=== PATIENT | female | born 1990 | race Caucasian/White ===

== ENCOUNTER 2017-03-16 03:11 | Emergency (ER) | payer OTHER ==
[2017-03-16 03:11] VITALS: BMI 34.3
[2017-03-16 03:23] VITALS: BP 146/81; PULSE 74; RESP 16; TEMP 98.5; O2SAT 96
[2017-03-16] MEDS ORDERED: Alum-Mag Hydrox-Simethicone Susp (30 mL) PO STA (03:27)
--- NOTE | 2017-03-16 03:39 | ED PDOC ---
HPI: Abdomen Time Seen by Provider: 03/16/17 03:22 Chief Complaint (Nursing): Abdominal Pain History Per: Patient History/Exam Limitations: no limitations Onset/Duration Of Symptoms: Days Outside of [place] travel?: No Current Symptoms Are (Timing): Still Present Location Of Pain/Discomfort: Epigastric Associated Symptoms: Nausea. denies: Vomiting Additional History Per: Patient Additional Complaint(s): no pmhx p/w 3 days of epigastric pain with nausea, no vomiting. normal BM's, no urinary symptoms, no vb/vd. states pain is pressure like, not associated with food consumption. no fevers/chills. Past Medical History Reviewed: Historical Data, Nursing Documentation, Vital Signs Vital Signs: Last Vital Signs Temp 98.5 F 03/16/17 03:18 Pulse 74 03/16/17 03:18 Resp 16 03/16/17 03:18 BP 146/81 03/16/17 03:18 Pulse Ox 96 03/16/17 03:39 - Medical History PMH: Asthma Denies: HIV, Chronic Kidney Disease - Family History Family History: States: Unknown Family Hx - Immunization History Hx Tetanus Toxoid Vaccination: No Hx Influenza Vaccination: No Hx Pneumococcal Vaccination: No - Home Medications Home Medications: Ambulatory Orders Medication Instructions Recorded Cyclobenzaprine [Cyclobenzaprine 10 mg PO TID #30 tab 01/22/16 HCl] Naproxen [Naprosyn] 500 mg PO BID PRN #20 tablet 01/22/16 Cyclobenzaprine [Cyclobenzaprine 10 mg PO BID PRN #10 tab 05/09/16 HCl] Naproxen 500 mg PO BID PRN #20 tab 05/09/16 traMADol [Ultram] 50 mg PO TID PRN #10 tab 05/09/16 Famotidine [Pepcid] 20 mg PO BID #30 tab 03/16/17 Omeprazole 20 mg PO DAILY #30 capsule. 03/16/17 - Allergies Allergies/Adverse Reactions: Allergies Allergy/AdvReac Type Severity Reaction Status Date / Time No Known Allergies Allergy Verified 01/22/16 11:53 Review of Systems ROS Statement: Except As Marked, All Systems Reviewed And Found Negative Gastrointestinal: Positive for: Nausea, Abdominal Pain. Negative for: Vomiting , Diarrhea Physical Exam - Reviewed Nursing Documentation Reviewed: Yes - Physical Exam Appears: Positive for: Well, Non-toxic, No Acute Distress Head Exam: Positive for: ATRAUMATIC, NORMAL INSPECTION, NORMOCEPHALIC Skin: Positive for: Normal Color, Warm, DRY Eye Exam: Positive for: EOMI, Normal appearance, PERRL ENT: Positive for: Normal ENT Inspection Neck: Positive for: Normal, Painless ROM Cardiovascular/Chest: Positive for: Regular Rate, Rhythm Respiratory: Positive for: CNT, Normal Breath Sounds Gastrointestinal/Abdominal: Positive for: Normal Exam, Bowel Sounds, Soft Back: Positive for: Normal Inspection Extremity: Positive for: Normal ROM Neurologic/Psych: Positive for: Alert, Oriented - Laboratory Results Result Diagrams: 03/16/17 04:54 03/16/17 04:54 - ECG O2 Sat by Pulse Oximetry: 96 Pulse Ox Interpretation: Normal Medical Decision Making Medical Decision Making: Pt. w/ epigastric pain, nausea. normal exam, normal vitals, likely gastriits, will give GI cocktail, check routine labs and reassess. 630am: pt. feeling much better, pain resolved, will d/c home. return precautions given. Disposition - Clinical Impression Clinical Impression: Gastritis, Abdominal pain - Disposition Referrals: [facility] [Outside] Disposition Time: 06:30 Condition: STABLE Prescriptions: Famotidine [Pepcid] 20 mg PO BID #30 tab Omeprazole 20 mg PO DAILY #30 capsule. Instructions: Gastritis (ED), Epigastric Pain (ED)
[2017-03-16] MEDS ORDERED: Alum-Mag Hydrox-Simethicone Susp (30 mL) ONE (03:51)
[2017-03-16 04:59] LABS: BASO # 0.1 K/uL (0.0-0.2); BASO % 1.2 % (0.0-2.0); EOS # 0.3 K/uL (0.0-0.7); EOS % 4.3 % (0.0-4.0); HEMATOCRIT 42.8 % (34.0-47.0); LYMPH # 1.7 K/uL (1.0-4.3); LYMPH % 21.4 % (20.0-40.0); MEAN CELL VOLUME 83.5 fl (81.0-99.0); MEAN CORPUSCULAR HEMOGLOBIN 27.4 pg (27.0-31.0); MEAN CORPUSCULAR HGB CONC 32.8 g/dL (33.0-37.0); MEAN PLATELET VOLUME 8.6 fl (7.2-11.7); MONO # 0.6 K/uL (0.0-0.8); MONO % 7.7 % (0.0-10.0); NEUT # 5.2 K/uL (1.8-7.0); NEUT % 65.4 % (50.0-75.0); RED CELL DISTRIBUTION WIDTH 13.9 % (11.5-14.5); WHITE BLOOD COUNT 7.9 K/uL (4.8-10.8)
[2017-03-16 05:15] LABS: ALB/GLOB RATIO 1.4 (1.0-2.1); ALKALINE PHOSPHATASE 109 U/L (38-126); ALT/SGPT 31 U/L (9-52); AST/SGOT 20 U/L (14-36); BILIRUBIN,TOTAL 0.6 mg/dl (0.2-1.3); BLOOD UREA NITROGEN 11 mg/dl (7-17); CARBON DIOXIDE 23 mmol/L (22-30); CHLORIDE 107 mmol/L (98-107); GFR AFRICAN-AMERICAN > 60; GLUCOSE,RANDOM 105 mg/dL (65-105); LIPASE 132 U/L (23-300); POTASSIUM 4.3 MMOL/L (3.6-5.0); SODIUM 141 mmol/l (132-148); TOTAL PROTEIN 7.5 G/DL (6.3-8.2)
== END 2017-03-16 06:57 | disposition home or self-care (01) ==
LOC: H.ER 03:11
DX: K29.70 Gastritis, unspecified, without bleeding (principal); R11.0 Nausea; J45.909 Unspecified asthma, uncomplicated

== ENCOUNTER 2017-10-03 22:23 | Emergency (ER) | payer OTHER ==
[2017-10-03 23:28] VITALS: BMI 37.2
[2017-10-04 00:38] LABS: RBC URINE 4 /hpf (0-3); URINE BACTERIA RARE (<OCC); URINE BILIRUBIN NEGATIVE (NEGATIVE); URINE BLOOD NEGATIVE (NEGATIVE); URINE COLOR YELLOW (YELLOW); URINE GLUCOSE (UA) NEG (Normal); URINE KETONE NEGATIVE (NEGATIVE); URINE LEUKOCYTE ESTERASE NEG Leu/uL (Negative); URINE PROTEIN NEGATIVE (NEGATIVE); URINE UROBILINOGEN 0.2-1.0 mg/dL (0.2-1.0); WBC URINE 4 /hpf (0-5)
--- NOTE | 2017-10-04 08:15 | OBHP ---
Datetime: 10/03/2017 23:34 IP Adm Impression: , intrauterine IP Chief Complaint Other: Epigastric pain IP Admit Plan: Observation/Evaluation Admit Comment, IP Provider: 27 y/o female, , IUP@20.1 weeks, MADAN 02/19/18, presents to the JUNIOR c /o epigastric pain which started at 5 PM. Pain is dull, pressure like, 5/10 severity, doesnt radiate, denies any aggravating or alleviating factors. Pain is not associated with any food or urination. ilsa pickard denies any nausea, vomiting, diarrhea. cp or dyspnea. PNC: Dr. Swann PNI: Denies any issues or abnormal labs so far with this PMH: Asthma (Inhaller use yesterday), Obesity PSH: Denies Meds: PNV Allg: NKDA OB: 3SNVD, term SH: Denies any alcohol/smoking or drug use FH: DM and HTN ROS: as per HPI VS: Stable, Afebrile 123/69 PE: Gravid abdo. BS+, Mild tenderness on epigastric palpation, no rebound or guarding Cervix: Closed A/P: 27 y/o female, , IUP@20.1 weeks, MADAN 02/19/18, presents to the JUNIOR c/o epigastric pain which s tarted at 5 PM. - UA - GERD discussed with patient, avoid spicy/fried food - Monitor and D/c home if UA is negative - ER precautions given Case discussed and patient seen with Dr. Woodard. --- Fredrick Martinez, PGY-1 Pelvic Type - PN: Adequate Extremities - PN: Normal Abdomen - PN: Normal Back - PN: Normal Breast - PN: Not Done Lungs - PN: Normal Heart - PN: Normal Thyroid - PN: Normal Neurologic - PN: Normal HEENT - PN: Normal General - PN: Normal FHR - Baseline A Provider: 150 Membranes, Provider: Intact Comments, ACOG Physical Exam: Gravid Abdo, Soft, Mild epigastric tenderness on deep palpation, no re bound or guarding EGA AdmitDate IP: 21.0 Vital Signs Provider: Reviewed; Within Normal Limits IP Chief Complaint: evaluation; Other Dilatation, Provider: Closed Genitourinary Exam: Normal DTRs - PN: Normal
[2017-10-04 15:56] VITALS: BP 123/69; PULSE 85; RESP 18; TEMP 98.3
== END 2017-10-04 00:45 | disposition home or self-care (01) ==
LOC: H.EROB2 22:23 → H.EROB 22:47 → H.EROB2 10-04 00:45
DX: O26.92 Pregnancy related conditions, unspecified, second trimester (principal); R10.13 Epigastric pain; Z3A.20 20 weeks gestation of pregnancy

== ENCOUNTER 2017-12-07 13:35 | Emergency (ER) | payer MEDICAID, OTHER ==
[2017-12-07 13:42] VITALS: BMI 38.9
--- NOTE | 2017-12-07 13:53 | ED PDOC ---
HPI: SOB/CHF/COPD Time Seen by Provider: 12/07/17 13:36 Chief Complaint (Nursing): Shortness Of Breath Chief Complaint (Provider): SOB History Per: Patient Additional Complaint(s): pt. is a 27 yo female, PMH of Asthma, presents into ER c/o chest tightness and SOB since last night. Pt states she has been using her inhaler since last night with no relief. states she is also having cough, chills and bodyaches that started today. pt. states she is 30 weeks . pt. refused EKG in triage and reports no medications were taken for symptoms thus far. Pt reports that her daughter is at home being treated for presumed flu. Pt's daughter was not swabbed. No flu shot this year Past Medical History Reviewed: Nursing Documentation, Vital Signs Vital Signs: Last Vital Signs Temp 98.0 F 12/07/17 13:44 Pulse 141 H 12/07/17 13:44 Resp 18 12/07/17 14:13 BP 153/83 H 12/07/17 13:44 Pulse Ox 100 12/07/17 13:52 - Medical History PMH: Asthma Denies: HIV, Chronic Kidney Disease - Family History Family History: States: Unknown Family Hx - Living Arrangements Living Arrangements: With Family - Social History Current smoker - smoking cessation education provided: No Alcohol: None Drugs: Denies - Immunization History Hx Tetanus Toxoid Vaccination: No Hx Influenza Vaccination: No Hx Pneumococcal Vaccination: No - Home Medications Home Medications: Ambulatory Orders Medication Instructions Recorded Cyclobenzaprine [Cyclobenzaprine 10 mg PO TID #30 tab 01/22/16 HCl] Naproxen [Naprosyn] 500 mg PO BID PRN #20 tablet 01/22/16 Cyclobenzaprine [Cyclobenzaprine 10 mg PO BID PRN #10 tab 05/09/16 HCl] Naproxen 500 mg PO BID PRN #20 tab 05/09/16 traMADol [Ultram] 50 mg PO TID PRN #10 tab 05/09/16 Famotidine [Pepcid] 20 mg PO BID #30 tab 03/16/17 Omeprazole 20 mg PO DAILY #30 capsule. 03/16/17 Oseltamivir [Tamiflu] 75 mg PO BID 5 Days cap 12/07/17 - Allergies Allergies/Adverse Reactions: Allergies Allergy/AdvReac Type Severity Reaction Status Date / Time No Known Allergies Allergy Verified 12/07/17 13:43 Curb-65 Severity Score - CURB-65 Severity Score Confusion: No Bun >19mg/dl (>7mmol/L): No Respiratory Rate greater than/equal to 30: No Systolic BP <90 or Diastolic BP less than/equal 60mmHg: No Age >64: No Curb-65 Score: 0 Percentage 30-day mortality: 0.6% Wells Criteria for PE - Wells Criteria for Pulmonary Embolism Clinical Signs and Symptoms of DVT: No P.E is #1 Diagnosis, or Equally Likely: No Heart Rate >100: Yes Immobilization at least 3 days;Surgery previous 4 weeks: No Previous, objectively diagnosed PE or DVT: No Hemoptysis: No Malignancy w/treatment within 6 months, or palliative: No Total Score: 1.5 Review of Systems ROS Statement: Except As Marked, All Systems Reviewed And Found Negative Constitutional: Positive for: Fever Respiratory: Positive for: Cough, Shortness of Breath Physical Exam - Reviewed Nursing Documentation Reviewed: Yes Vital Signs Reviewed: Yes - Physical Exam Appears: Positive for: Well, Non-toxic, No Acute Distress Head Exam: Positive for: ATRAUMATIC, NORMAL INSPECTION, NORMOCEPHALIC Skin: Positive for: Normal Color, Warm, DRY Eye Exam: Positive for: EOMI, Normal appearance, PERRL ENT: Positive for: Normal ENT Inspection Neck: Positive for: Normal, Painless ROM Cardiovascular/Chest: Positive for: Regular Rate, Rhythm Respiratory: Positive for: Normal Breath Sounds. Negative for: Decreased Breath Sounds, Accessory Muscle Use, Wheezing Gastrointestinal/Abdominal: Positive for: Normal Exam, Bowel Sounds, Soft Back: Positive for: Normal Inspection Extremity: Positive for: Normal ROM Neurologic/Psych: Positive for: Alert, Oriented - ECG O2 Sat by Pulse Oximetry: 100 Medical Decision Making Medical Decision Making: Pt aferbile. Physical exam benign. Duo neb administered while in ED, Pt reports feeling greatly improved on re- eval. Lungs remain CTA bilaterally, POX: 100% on RA Pt notes body aches improved after Tylenol and Tamiflu as well. Vitals on re-eval: T:98.4 F P: 122 BP: 143/78 POX: 98% on RA Pt asking for work note upon discharge Disposition - Clinical Impression Clinical Impression: Viral syndrome - Patient ED Disposition Is Patient to be Admitted: No - Disposition Disposition: Routine/Home Disposition Time: 16:46 Condition: STABLE Prescriptions: Oseltamivir [Tamiflu] 75 mg PO BID 5 Days cap Instructions: Viral Syndrome (ED) Forms: [facility] (Armenian), [facility] ED School/Work Excuse - POA Present On Arrival: None
[2017-12-07 14:20] VITALS: RESP 18
[2017-12-07] MEDS ORDERED: Albuterol-Ipratrop 3 mg / 0.5 (3 ml) UD INH STA (14:27)
[2017-12-07] MEDS ORDERED: Albuterol-Ipratrop 3 mg / 0.5 (3 ml) UD ONE (14:39)
[2017-12-07 16:51] VITALS: BP 143/78; TEMP 98.4
[2017-12-07] MEDS: Albuterol-Ipratrop 3 mg / 0.5 (3 ml) UD INH STA ×2 (17:11→17:18)
[2017-12-07 17:34] VITALS: PULSE 116; O2SAT 96
== END 2017-12-07 17:34 | disposition home or self-care (01) ==
LOC: H.ER 13:35
DX: B34.9 Viral infection, unspecified (principal); O98.513 Other viral diseases complicating pregnancy, third trimester; Z3A.30 30 weeks gestation of pregnancy

== ENCOUNTER 2018-01-30 16:22 | Emergency (ER) | payer OTHER ==
[2018-01-31 00:33] VITALS: BP 136/81; PULSE 91; O2SAT 100
== END 2018-01-30 17:30 | disposition home or self-care (01) ==
LOC: H.EROB2 16:22
DX: O36.8130 Decreased fetal movements, third trimester, not applicable or unspecified (principal); Z3A.37 37 weeks gestation of pregnancy

== ENCOUNTER 2018-02-10 13:06 | Emergency (ER) | payer MEDICAID ==
[2018-02-10 13:39] VITALS: BMI 45.7
[2018-02-10 14:59] LABS: BASO % 0.4 % (0.0-2.0); EOS # 0.4 K/uL (0.0-0.7); EOS % 3.5 % (0.0-4.0); HEMOGLOBIN 10.8 g/dL (12.0-16.0); LYMPH # 1.6 K/uL (1.0-4.3); LYMPH % 13.5 % (20.0-40.0); MEAN CELL VOLUME 88.2 fl (81.0-99.0); MEAN PLATELET VOLUME 9.1 fl (7.2-11.7); MONO # 0.7 K/uL (0.0-0.8); MONO % 5.8 % (0.0-10.0); NEUT # 9.2 K/uL (1.8-7.0); NEUT % 76.8 % (50.0-75.0); RBC 3.59 Mil/uL (3.80-5.20); RED CELL DISTRIBUTION WIDTH 13.7 % (11.5-14.5); WHITE BLOOD COUNT 11.9 K/uL (4.8-10.8)
[2018-02-10 15:00] LABS: SQUAMOUS EPITHIAL 3 /hpf (0-5); URINE BACTERIA RARE (<OCC); URINE BILIRUBIN NEGATIVE (NEGATIVE); URINE BLOOD NEGATIVE (NEGATIVE); URINE CLARITY CLOUDY (Clear); URINE COLOR YELLOW (YELLOW); URINE GLUCOSE (UA) NEG (Normal); URINE LEUKOCYTE ESTERASE NEG Leu/uL (Negative); URINE PROTEIN NEGATIVE (NEGATIVE); URINE UROBILINOGEN 0.2-1.0 mg/dL (0.2-1.0)
[2018-02-10 15:13] LABS: ALB/GLOB RATIO 0.9 (1.0-2.1); ALBUMIN 3.1 g/dL (3.5-5.0); ALT/SGPT 28 U/L (9-52); AST/SGOT 18 U/L (14-36); BLOOD UREA NITROGEN 6 mg/dl (7-17); CALCIUM 8.7 mg/dL (8.4-10.2); GFR AFRICAN-AMERICAN > 60; GFR NON-AFRICAN AMERICAN > 60
[2018-02-10 21:28] VITALS: BP 132/69; PULSE 87; RESP 17; TEMP 98.1; O2SAT 100
== END 2018-02-10 16:30 | disposition home or self-care (01) ==
LOC: H.EROB2 13:06 → H.EROB 13:09 → H.EROB2 16:30
DX: O13.3 Gestational [pregnancy-induced] hypertension without significant proteinuria, third trimester (principal); Z3A.38 38 weeks gestation of pregnancy

== ENCOUNTER 2018-02-12 20:39 | Inpatient (IN) | payer MEDICAID ==
[2018-02-12 21:14] VITALS: BMI 45.3
[2018-02-12] MEDS ORDERED: Lactated Ringer's 1,000 ML IV SCH (21:15)
[2018-02-12] MEDS: Lactated Ringer's 1,000 ML IV SCH (21:40)
[2018-02-12 22:09] LABS: BASO % 0.4 % (0.0-2.0); EOS # 0.4 K/uL (0.0-0.7); EOS % 2.6 % (0.0-4.0); HEMOGLOBIN 11.3 g/dL (12.0-16.0); LYMPH # 1.9 K/uL (1.0-4.3); LYMPH % 13.2 % (20.0-40.0); MEAN CELL VOLUME 88.1 fl (81.0-99.0); MEAN CORPUSCULAR HEMOGLOBIN 30.2 pg (27.0-31.0); MEAN CORPUSCULAR HGB CONC 34.2 g/dL (33.0-37.0); MEAN PLATELET VOLUME 9.3 fl (7.2-11.7); MONO # 0.9 K/uL (0.0-0.8); MONO % 6.5 % (0.0-10.0); NEUT # 10.9 K/uL (1.8-7.0); NEUT % 77.3 % (50.0-75.0); NRBC % 0.1 % (0.0-0.0); RBC 3.73 Mil/uL (3.80-5.20); RED CELL DISTRIBUTION WIDTH 13.8 % (11.5-14.5); WHITE BLOOD COUNT 14.1 K/uL (4.8-10.8)
[2018-02-12 22:19] LABS: ALBUMIN 3.3 g/dL (3.5-5.0); ALT/SGPT 25 U/L (9-52); AST/SGOT 17 U/L (14-36); BLOOD UREA NITROGEN 8 mg/dl (7-17); CALCIUM 8.9 mg/dL (8.4-10.2); GFR AFRICAN-AMERICAN > 60; GFR NON-AFRICAN AMERICAN > 60; URIC ACID 4.6 mg/Dl (2.2-7.5)
--- NOTE | 2018-02-12 22:29 | OBADHP ---
Datetime: 02/12/2018 21:23 Admit Comment, IP Provider: CC: IOL HPI: 28 YO @ 39.0wks IUP (MADAN 02/19) presents to L_D for IOL for elevated bp. Pt states the pr egnancy has been going well, she was found to have elevated bp on last visit 170's systolic. Endorsin g good FM, no VB, no LOF and occasional ctx. Denies headache, blurry vision, n/v/d/c, RUQ pain. MD: KYBalwinder OBHx: 3x FT NVD (2009,2012,2013), Rh neg, RHO @ 28wks PMH: Asthma Of note, per chart review pt was found to be MRSA pos in 03/31/15 but a subsequent MRSA culture was neg on 04/03/18. Per chart, latest finding shows pt is MRSA neg. SurgH: denies FH: father has DM SH: denies smoking, ETOH, illict drug use Allergies: NKDA Meds: PNV, albuterol PE: Gen: NAD Cardio: S1S2 no additional heart sounds Resp: clear breath sounds b/l Abdomen: gravid, NT, BS+ Neuro: AAO x 3 Ext: NT, 1+ pitting edema up to the mid-manzano b/l FM: 150, catagory I Bedside U/S: Baby is vertex Cervx: 2/50/-3 (@10:05) A/P: 28 YO @ 39.0wks IUP (MADAN 02/19) presents to L_D for IOL for elevated bp. GBS neg, HIV neg , RPR neg, Heb B neg, rubella equivocal. Initial Bp elevated at 158/110. -Admit pt to L_D -start IOL protocol-cervidil in @ 10:18 -PIH blood work -continue FM -anesthesiology consult -monitor bps -continue to manage labor progression Pt seen and examined with Dr. Mai Flores, PGY I OB Hospitalist Addendum: Pt seen and examined by me. Agree w/ above. 28 yo at 39 wks for induction of labor for gestational hypertension. FHT reactive. Cervidil placed at 10:18 pm. (ES) Pelvic Type - PN: Adequate Extremities - PN: Normal Abdomen - PN: Normal Back - PN: Not Done Breast - PN: Normal Lungs - PN: Normal Heart - PN: Normal Thyroid - PN: Not Done Neurologic - PN: Normal HEENT - PN: Normal General - PN: Normal FHR - Baseline A Provider: 150 Membranes, Provider: Intact Vital Signs Provider: Reviewed Vital Signs Provider Details: initial bp elevated subsequent wnl IP Chief Complaint: Scheduled induction of labor NICHD Variability Prov Fetus A: Moderate 6-25bpm NICHD Accel Fetus A IP Provider: 15X15 FHR Category Provider Fetus A: Category I Dilatation, Provider: 2 Effacement, Provider: 50 Station, Provider: -3 Genitourinary Exam: Not Done DTRs - PN: Not Done EGA AdmitDate IP: 39.0 IP Adm Impression: Term, intrauterine IP Admit Plan: Admit to unit; Initiate labor protocol; Initiate labor induction protocol Datetime: 02/10/2018 14:59 IP Chief Complaint Other: High Blood pressure IP Admit Plan Other: PIH workup NICHD Decel Fetus A IP Provider: None Datetime: 01/30/2018 17:27 Comments, ACOG Physical Exam: extremities: trace edema SVE: closed/thick/high IP Hx Assessment: The History has been Reviewed and is Current
[2018-02-12 22:35] LABS: SQUAMOUS EPITHIAL 3 /hpf (0-5); URINE BACTERIA RARE (<OCC); URINE BILIRUBIN NEGATIVE (NEGATIVE); URINE BLOOD NEGATIVE (NEGATIVE); URINE CLARITY SLIGHTY-CLOUDY (Clear); URINE COLOR YELLOW (YELLOW); URINE GLUCOSE (UA) NEG (Normal); URINE LEUKOCYTE ESTERASE NEG Leu/uL (Negative); URINE PROTEIN NEGATIVE (NEGATIVE); URINE UROBILINOGEN 0.2-1.0 mg/dL (0.2-1.0)
[2018-02-13] MEDS ORDERED: Oxytocin 30 units/LR 500ML 30 U/500 ML BAG IV ONE ×2 (11:35→17:30)
--- NOTE | 2018-02-13 11:58 | OBPN ---
Datetime: 02/13/2018 11:41 IP Progress Impression: Normal progression of labor; Reassuring heart rate IP Procedures: Sterile Vag Exam IP Progress Plan: Continue present management Contraction Comments Provider: q5-6min FHR - Baseline A Provider: 130s IP Progress Note Comment: Labor progressing well. Both maternal well-being and well-being reas suring at this time. Continue current management. NICHD Accel Fetus A IP Provider: 15X15 FHR Category Provider Fetus A: Category I NICHD Variability Prov Fetus A: Moderate 6-25bpm Dilatation, Provider: 4 Effacement, Provider: 100 Station, Provider: -3 NICHD Decel Fetus A IP Provider: None Datetime: 02/12/2018 21:23 Membranes, Provider: Intact Vital Signs Provider: Reviewed Vital Signs Provider Details: initial bp elevated subsequent wnl
[2018-02-13] MEDS ORDERED: Lidocaine 2% Inj (20ml) ONE (12:37)
--- NOTE | 2018-02-13 17:30 | OBPN ---
Datetime: 02/13/2018 17:26 IP Progress Impression: Reassuring heart rate IP Procedures: Sterile Vag Exam IP Progress Plan: Augmentation Membranes, Provider: Intact Contraction Comments Provider: irregular FHR - Baseline A Provider: 150s IP Progress Note Comment: Start pitocin augmentation. Both MWB/FWB reassuring at this time. Vital Signs Provider: Reviewed; Within Normal Limits NICHD Accel Fetus A IP Provider: 15X15 FHR Category Provider Fetus A: Category I NICHD Variability Prov Fetus A: Moderate 6-25bpm Dilatation, Provider: 5 Effacement, Provider: 100 Station, Provider: -3 NICHD Decel Fetus A IP Provider: None
[2018-02-13] MEDS ORDERED: Nalbuphine 20 mg/ml Inj (1 ml) ONE (17:45)
[2018-02-13] MEDS: Nalbuphine 20 mg/ml Inj (1 ml) IVP PRN ×2 (17:50→18:00)
[2018-02-13] MEDS: Lactated Ringer's 1,000 ML IV SCH (19:02)
--- NOTE | 2018-02-13 20:41 | OBPN ---
Datetime: 02/13/2018 20:37 IP Progress Impression: Reassuring heart rate IP Informed Consent Obtain: Vaginal Delivery IP Procedures: Artificial ROM; Sterile Vag Exam IP Progress Plan: Continue present management Membranes, Provider: Ruptured Amniotic Fluid Color, Provider: Clear Contraction Comments Provider: q2-5min FHR - Baseline A Provider: 130s-140s IP Progress Note Comment: AROM clear fluid. Both maternal well-being and well-being reassuring at this time. Anticipate normal spontaneous vaginal delivery. Vital Signs Provider: Reviewed; Within Normal Limits NICHD Accel Fetus A IP Provider: 15X15 FHR Category Provider Fetus A: Category I NICHD Variability Prov Fetus A: Moderate 6-25bpm Dilatation, Provider: 7-8 Effacement, Provider: 100 Station, Provider: 0 NICHD Decel Fetus A IP Provider: None
[2018-02-13] MEDS ORDERED: Oxycodone/Acetaminophen 5/325 mg Tab PO PRN ×2 (21:18)
--- NOTE | 2018-02-13 21:28 | OBDS ---
DELIVERY PERSONNEL Delivery Doctor: Dimitri Woodard MD Night Monitor: Maria A Chinchilla RN Resident: Sandra MATERNAL INFORMATION Delivery Anesthesia: None Medications in Delivery: Oxytocin Provider Comments: Normal spontaneous vaginal delivery. Patient delivered viable male with Apgars of 9 and 9 at one and 5 minutes respectively. Inf ant delivered via KHANH position. Placenta delivered spontaneously. No lacerations, perineum intact. Af ter bimanual uterine massage, uterus firm and appropriately hemostatic. Patient tolerated delivery we ll. No complications. Estimate blood loss 400 mL. LABOR SUMMARY EDC: 02/19/2018 00:00 No. Babies in Womb: 1 Attempted: No Labor Anesthesia: None LABOR INFORMATION Reason for Induction: Gest. HTN/PreEclampsia/Eclampsia Cervical Ripening Agents: Cervidil Other Ripening Agents: cervidil removed by RN Oxytocin: Induction Group B Beta Strep: Negative Steroids Given: None Reason Steroids Not Administered: Not Applicable MEMBRANES Membranes Rupture Method: Artificial Rupture of Membranes: 02/13/2018 20:30 Amniotic Fluid Color: Clear Amniotic Fluid Amount: Moderate Amniotic Fluid Odor: Normal VAGINAL DELIVERY Episiotomy: None Laceration Extension: N/A Laceration Type: None Laceration Repair: Not Applicable PRESENTATION/POSITION BABY A Presentation: Cephalic Cephalic Presentation: Vertex INFORMATION BABY A Gestational Age at Delivery: 39.0 Gestational Status: Term IDENTIFICATION/MEDS BABY A ID Band Number: [id number] ID Band Location: Left Leg; Left Arm
[2018-02-14] MEDS ORDERED: Oxycodone/Acetaminophen 5/325 mg Tab PO PRN ×2 (00:13)
[2018-02-14 07:58] LABS: BASO % 0.3 % (0.0-2.0); EOS # 0.1 K/uL (0.0-0.7); EOS % 0.7 % (0.0-4.0); HEMOGLOBIN 9.3 g/dL (12.0-16.0); LYMPH # 1.6 K/uL (1.0-4.3); LYMPH % 12.9 % (20.0-40.0); MEAN CELL VOLUME 88.1 fl (81.0-99.0); MEAN CORPUSCULAR HEMOGLOBIN 29.7 pg (27.0-31.0); MEAN CORPUSCULAR HGB CONC 33.7 g/dL (33.0-37.0); MEAN PLATELET VOLUME 9.2 fl (7.2-11.7); MONO % 7.9 % (0.0-10.0); NEUT # 9.8 K/uL (1.8-7.0); NEUT % 78.2 % (50.0-75.0); RBC 3.14 Mil/uL (3.80-5.20); RED CELL DISTRIBUTION WIDTH 13.8 % (11.5-14.5); WHITE BLOOD COUNT 12.6 K/uL (4.8-10.8)
--- NOTE | 2018-02-14 08:38 | OBPPN ---
Datetime: 02/14/2018 06:10 PP Pain Prov: Within normal limits PP Nausea Prov: Denies PP Flatus Prov: Yes PP BM Prov: No PP Breasts Prov: Normal PP Heart Prov: Normal PP Lungs Prov: Normal PP Abdomen/Uterus Prov: Normal PP Lochia Prov: Normal PP Vulva/Perineum Prov: Normal PP CVA Tenderness Prov: Not Done PP Extremities Prov: Normal PP C/S Incision Prov: Not Applicable PP Progress Prov: Normal PP Impression Prov: Normal progression PP Plan Prov: Continue present management PP Progress Note Prov: S: 28 YO PPD1, s/p NVD. Pt is seen and examined by bedside this AM. Pt h ad moderate vaginal bleeding at night, decreased this AM. Pt is endorsing abdominal pain, but toleati ng with meds. Has ambulated to the bathroom with assistance, no dizziness. Tolerating PO diet. - BM b ut passing flatus. Denies chest pain, dyspnea, n/v, fever/chills, diarrhea, nausea/vomiting, and calf pain. Does not desire circ for baby. O: VS: wnl, afebrile GEN: Awake, alert. HEENT: EOMI, moist mucosa. LUNGS: CTA B/L, no wheezing, rhonci, or rales CVS: RRR, S1, S2 no murmurs ABD: ND, +BS, soft abdomen, firm fundus, @ umbilicus. EXT: No edema, neg calf tenderness NEURO/PSYCHI: AAOx3, no grossly focal deficit, preserved affect and mood. Assessment/Plan: 28 YO PPD1, s/p NVD on 02/13/18, gave to a baby boy. Pt remains afebril e, tolerating pain with medication, good PO intake and urinating without any difficulties. Doing well on PPD1. -C/w regular diet as tolerated. -OOB with caution SCDs for DVT prophylaxis -Ibuprofen and Percocet for pain prn -C/w Colace 100mg PO BID -Encourage and early ambulation. Nelida Flores, PGY I The patient was seen with the resident I agree with note Vital Signs Provider PP: Reviewed; Within Normal Limits
[2018-02-14] MEDS ORDERED: Hydrocortisone-Pramoxine 1%-1% Foam(10 gm) TOP PRN (17:19)
--- NOTE | 2018-02-15 07:27 | OBPPN ---
Datetime: 02/15/2018 06:14 PP Pain Prov: Within normal limits PP Nausea Prov: Denies PP Flatus Prov: Yes PP BM Prov: Yes PP Breasts Prov: Not Done PP Heart Prov: Normal PP Lungs Prov: Normal PP Abdomen/Uterus Prov: Normal PP Lochia Prov: Normal PP Vulva/Perineum Prov: Normal PP CVA Tenderness Prov: Not Done PP Extremities Prov: Normal PP C/S Incision Prov: Not Applicable PP Progress Prov: Normal PP Impression Prov: Normal progression PP Plan Prov: Continue present management; Discharge PP Progress Note Prov: S: 28 YO PPD2, s/p NVD. Pt is seen and examined by bedside this AM. No a cute overnight events. Pt is endorsing abdominal pain, but well controlled with pain meds. Pt is ambu lating around the room without any difficulties. Bleeding is like menses now. Pt states that she has hemorrhiods, non-bleeding, would like recs for them. Pt encourged to use preparation H cream. Tolerat ing PO diet. +BM and passing flatus. Denies chest pain, dyspnea, n/v, fever/chills, diarrhea, nausea/ vomiting, and calf pain. O: VS: wnl, afebrile GEN: Awake, alert. HEENT: EOMI, moist mucosa. LUNGS: CTA B/L, no wheezing, rhonci, or rales CVS: RRR, S1, S2 no murmurs ABD: ND, +BS, soft abdomen, firm fundus, @ umbilicus. EXT: No edema, neg calf tenderness NEURO/PSYCHI: AAOx3, no grossly focal deficit, preserved affect and mood. Assessment/Plan: 28 YO PPD2, s/p NVD on 02/13/18, gave to a baby boy. Pt remains afebril e, tolerating pain with medication, good PO intake and urinating without any difficulties. Doing well on PPD2. Baby Rh pos, s/p rhogam on 02/14/17. -C/w regular diet as tolerated. -OOB with caution SCDs for DVT prophylaxis -Ibuprofen and Percocet for pain prn -C/w Colace 100mg PO BID -Encourage and early ambulation -f/u up bp as outpatient -will d/c home today -f/u in [facility] in 6 wks for pp visit -f/u up with MD in 2-3 days for baby Nelida Sandra, PGY I OB Hospitalist Addendum: Pt seen and examined by me. Agree w/ above. PPD 2 s/p , doing well. Discharge home today. (ES) Vital Signs Provider PP: Reviewed Vital Signs Provider Details PP: Elevated bp, pt encouraged to follow up BPs as outpatient
[2018-02-15] MEDS ORDERED: Measles, Mumps, and Rubella 0.5 ML VIAL SC ONE (08:39)
[2018-02-15 14:14] VITALS: BP 137/87; PULSE 81; RESP 20; TEMP 97.8
[2018-02-15 20:24] VITALS: O2SAT 98
== END 2018-02-15 16:13 | disposition home or self-care (01) | DRG 372 ==
LOC: H.L&D 21:14 → H.OB/GYN 02-13 23:18
PROVIDERS: ADMIT Obstetrics & Gynecology; ATTEND Obstetrics & Gynecology
PROC: 4A1HXCZ Monitoring of Products of Conception, Cardiac Rate, External Approach (ICD-10-PCS; 2018-02-12)
PROC: 10E0XZZ Delivery of Products of Conception, External Approach (ICD-10-PCS; principal; 2018-02-13)
DX: O99.52 Diseases of the respiratory system complicating childbirth (principal); O13.4 Gestational [pregnancy-induced] hypertension without significant proteinuria, complicating childbirth; J45.909 Unspecified asthma, uncomplicated; O26.893 Other specified pregnancy related conditions, third trimester; Z37.0 Single live birth; Z3A.39 39 weeks gestation of pregnancy

== ENCOUNTER 2018-05-02 08:25 | Day surgery (SDC) | payer OTHER ==
[2018-04-17 13:29] VITALS: BMI 42.5
[2018-05-02 09:23] LABS: BASO % 0.7 % (0.0-2.0); EOS # 0.4 K/uL (0.0-0.7); EOS % 6.1 % (0.0-4.0); HEMOGLOBIN 11.7 g/dL (12.0-16.0); LYMPH # 1.4 K/uL (1.0-4.3); LYMPH % 20.1 % (20.0-40.0); MEAN CELL VOLUME 75.2 fl (81.0-99.0); MEAN CORPUSCULAR HEMOGLOBIN 24.3 pg (27.0-31.0); MEAN CORPUSCULAR HGB CONC 32.4 g/dL (33.0-37.0); MEAN PLATELET VOLUME 8.2 fl (7.2-11.7); MONO # 0.5 K/uL (0.0-0.8); MONO % 6.6 % (0.0-10.0); NEUT # 4.7 K/uL (1.8-7.0); NEUT % 66.5 % (50.0-75.0); NRBC % 0.1 % (0.0-0.0); RBC 4.79 Mil/uL (3.80-5.20); RED CELL DISTRIBUTION WIDTH 16.6 % (11.5-14.5); WHITE BLOOD COUNT 7.1 K/uL (4.8-10.8)
[2018-05-02] MEDS ORDERED: Lactated Ringer's 1,000 ML IV ONE ×2 (09:28→13:00)
[2018-05-02] MEDS ORDERED: cefOXitin IV 1 gm in Dextrose 1 GM/50 ML BAG IVPB ONE (11:09)
[2018-05-02] MEDS ORDERED: Neostigmine 1:1000 (1 mg/ml) Inj ONE (13:00)
[2018-05-02] MEDS ORDERED: HYDROmorphone 0.5 mg/0.5 ml ISec IVP PRN (13:27)
[2018-05-02 15:53] VITALS: BP 136/84; PULSE 67; RESP 18; TEMP 97.5
[2018-05-02 15:55] VITALS: O2SAT 96
--- NOTE | 2018-05-05 08:15 | OP ---
PROCEDURE DATE: 05/02/2018 PREOPERATIVE DIAGNOSIS: Multiparity. POSTOPERATIVE DIAGNOSIS: Multiparity. SURGEON: Devon Villalobos MD INVENTORY CONTROL ASSOCIATE: Twin Ferreira MD ANESTHESIA ADMINISTERED BY: Familia Sharma MD TYPE OF ANESTHESIA: General anesthesia. PROCEDURE: Bilateral tubal ligation with cautery. DESCRIPTION OF PROCEDURE: With the patient in the dorsal lithotomy position, under general anesthesia, the patient was prepped and draped in the usual sterile manner. Dr. Ferreira was present due to the BMI of the patient and he helped in the preparation of anesthesia. First the bladder was emptied with straight catheter after which the weighted speculum was placed in the posterior vagina. Cervix was grasped anteriorly with a single-tooth tenaculum and dilated. HUMI uterine manipulator put into place. We then moved to the abdomen, where the abdomen was tented and a Veress needle introduced and placed in the abdomen to about 4 L of CO2. After this was done, incision was enlarged and #10 trocar was introduced. The laparoscope with camera attached was also introduced visualizing the pelvic cavity to be normal. Then #5 trocar was introduced just about 2 cm above the pubic bone, sleeve was left into place, this was done and pelvic cavity was visualized. The right tube was grasped and cauterized extensively maintaining hemostasis. After this was done, the left tube was done in a similar fashion. Following this, hemostasis was maintained. After this was done, the was visualized to be normal. After this, the instruments were removed from the abdominopelvic cavity. The incisions were closed with 2 Vicryl and Dermabond. Bleeding was minimal. After this was done, the instruments were removed from the vagina. The patient tolerated the procedure very well and was in satisfactory condition on her way to recovery room. was present for the duration of the procedure and helped ithe preparation of procedure and during the procedure Devon Villalobos MD [facility]
== END 2018-05-02 17:00 | disposition home or self-care (01) ==
LOC: H.OPSURG 08:25
PROVIDERS: ATTEND Specialist
DX: Z64.1 Problems related to multiparity (principal); J45.909 Unspecified asthma, uncomplicated; M54.2 Cervicalgia; M54.5 Low back pain; E66.01 Morbid (severe) obesity due to excess calories
CPT/HCPCS: 36415; 58600; 85025; 86850; 86900; J0694; J1170; J1885; J2710; J7030; J7120

== ENCOUNTER 2018-11-24 22:22 | Emergency (ER) | payer BC, OTHER ==
[2018-11-24 22:22] VITALS: BMI 42.5
[2018-11-24 22:38] VITALS: O2SAT 98
[2018-11-24] MEDS ORDERED: Iohexol 240 (50 ml) PO ONE (23:16)
[2018-11-24] MEDS ORDERED: Iohexol 240 (50 ml) ONE (23:24)
[2018-11-25 00:10] LABS: BASO # 0.1 K/uL (0.0-0.2); BASO % 1.1 % (0.0-2.0); EOS # 0.4 K/uL (0.0-0.7); EOS % 5.2 % (0.0-4.0); HEMOGLOBIN 11.6 g/dL (12.0-16.0); LYMPH % 26.6 % (20.0-40.0); MEAN CELL VOLUME 74.6 fl (81.0-99.0); MEAN CORPUSCULAR HEMOGLOBIN 24.2 pg (27.0-31.0); MEAN CORPUSCULAR HGB CONC 32.4 g/dL (33.0-37.0); MEAN PLATELET VOLUME 8.5 fl (7.2-11.7); MONO # 0.5 K/uL (0.0-0.8); NEUT # 4.7 K/uL (1.8-7.0); NEUT % 61.1 % (50.0-75.0); NRBC % 0.1 % (0.0-0.0); RBC 4.81 Mil/uL (3.80-5.20); WHITE BLOOD COUNT 7.6 K/uL (4.8-10.8)
[2018-11-25 00:14] LABS: SQUAMOUS EPITHIAL 17 /hpf (0-5); URINE BACTERIA RARE (<OCC); URINE BILIRUBIN NEGATIVE (NEGATIVE); URINE BLOOD NEGATIVE (NEGATIVE); URINE CLARITY CLOUDY (Clear); URINE COLOR YELLOW (YELLOW); URINE GLUCOSE (UA) NEG (NEGATIVE); URINE LEUKOCYTE ESTERASE MOD Leu/uL (Negative); URINE PROTEIN NEGATIVE (NEGATIVE); URINE UROBILINOGEN 0.2-1.0 mg/dL (0.2-1.0)
[2018-11-25 00:18] LABS: ALB/GLOB RATIO 1.2 (1.0-2.1); ALBUMIN 3.9 g/dL (3.5-5.0); AST/SGOT 17 U/L (14-36); BLOOD UREA NITROGEN 10 mg/dl (7-17); CALCIUM 10.1 mg/dL (8.4-10.2); GFR NON-AFRICAN AMERICAN > 60; LIPASE 90 U/L (23-300)
[2018-11-25 00:24] LABS: ALT/SGPT 34 U/L (9-52)
[2018-11-25] MEDS ORDERED: Iohexol 300 100 ML IJ ONE (01:02)
[2018-11-25] MEDS ORDERED: Sodium Chloride 0.9% 50 ML IV ONE (01:03)
--- NOTE | 2018-11-25 02:22 | ED PDOC ---
HPI: Abdomen Time Seen by Provider: 11/24/18 23:02 Chief Complaint (Nursing): GI Problem Chief Complaint (Provider): Abd Pain Past Medical History Vital Signs: Last Vital Signs Temp 98.3 F 11/24/18 22:35 Pulse 74 11/24/18 22:35 Resp 18 11/24/18 22:35 BP 143/97 H 11/24/18 22:35 Pulse Ox 98 11/24/18 22:35 - Medical History PMH: Asthma Denies: HIV, Chronic Kidney Disease - Family History Family History: States: Unknown Family Hx - Immunization History Hx Tetanus Toxoid Vaccination: No Hx Influenza Vaccination: No Hx Pneumococcal Vaccination: No - Home Medications Home Medications: Ambulatory Orders Medication Instructions Recorded Albuterol HFA [Ventolin HFA 90 1 puff IH ASDIR 05/02/18 mcg/actuation (8 g)] Ibuprofen [Motrin Tab] 800 mg PO Q8 PRN 05/02/18 - Allergies Allergies/Adverse Reactions: Allergies Allergy/AdvReac Type Severity Reaction Status Date / Time No Known Allergies Allergy Verified 05/02/18 08:45 - Laboratory Results Result Diagrams: 11/24/18 23:30 11/24/18 23:30 Lab Results: Troponin I < 0.0120 ng/mL (0.00-0.120) 11/24/18 23:30 Total Bilirubin 0.2 mg/dl (0.2-1.3) 11/24/18 23:30 AST 17 U/L (14-36) 11/24/18 23:30 ALT 34 U/L (9-52) 11/24/18 23:30 Alkaline Phosphatase 117 U/L (38-126) 11/24/18 23:30 Total Protein 7.2 G/DL (6.3-8.2) 11/24/18 23:30 Albumin 3.9 g/dL (3.5-5.0) 11/24/18 23:30 Globulin 3.3 gm/dL (2.2-3.9) 11/24/18 23:30 Albumin/Globulin Ratio 1.2 (1.0-2.1) 11/24/18 23:30 Lipase 90 U/L (23-300) 11/24/18 23:30 Urine Color Yellow (YELLOW) 11/24/18 23:30 Urine Clarity Cloudy (Clear) 11/24/18 23: Urine pH 6.0 (5.0-8.0) 11/24/18 23: Ur Specific [place] 1.014 (1.003-1.030) 11/24/18 23: Urine Protein Negative mg/dL (NEGATIVE) 11/24/18 Urine Glucose (UA) Neg mg/dL (NEGATIVE) 11/24/18 Urine Ketones Negative mg/dL (NEGATIVE) 11/24/18: Urine Blood Negative (NEGATIVE) 11/24/18 23: Urine Nitrate Negative (NEGATIVE) 11/24/18: Urine Bilirubin Negative (NEGATIVE) 11/24/18 Urine Urobilinogen 0.2-1.0 mg/dL (0.2-1.0) 11/24/18 23: Ur Leukocyte Esterase Mod [place]/uL (Negative) 11/24/18: Urine RBC (Auto) 3 /hpf (0-3) 11/24/18: Urine Microscopic WBC 5 /hpf (0-5) 11/24/18 23:30 Ur Squamous Epith Cells 17 /hpf (0-5) H 11/24/18 23:30 Urine Bacteria Rare (<OCC) 11/24/18: - ECG O2 Sat by Pulse Oximetry: 98 Medical Decision Making Medical Decision Makin CT SCAN OF THE ABDOMEN AND PELVIS WITH CONTRAST. CLINICAL HISTORY: Abdominal pain. TECHNIQUE: Multiple axial and coronal CT images were obtained through the abdomen and pelvis after administration of intravenous and oral contrast material. COMMENTS: Uncomplicated colonic diverticulosis. The liver is of uniform attenuation without mass or defect. There is no intra or extrahepatic biliary ductal dilatation. The spleen is normal. The gallbladder is within normal limits. The pancreas is of normal contour and attenuation characteristics. There is no evidence of adrenal mass. Both kidneys demonstrate prompt and equal nephrograms. The kidneys are normal in size, shape and configuration. There is no evidence of renal or ureteral mass. No renal or ureteral calculi are identified. There is no hydroureter or hydronephrosis. No evidence for appendicitis. There is no bowel wall thickening. No evidence for small or large bowel obstruction. There is no evidence of abdominal ascites or lymphadenopathy. There is no evidence of intrinsic or extrinsic bladder mass. There is no pelvic ascites or lymphadenopathy. Images of the lung bases show no evidence of pleural or parenchymal mass. There are no pleural effusions. The bony structures are free of lytic or blastic lesions. IMPRESSION: No evidence of acute abdominal or pelvic pathology. Disposition - Clinical Impression Clinical Impression: Diverticulosis - Disposition Referrals: [facility] [Outside] [facility] [[facility]] [facility] [Outside] Disposition: Routine/Home Disposition Time: 03:00 Condition: STABLE Additional Instructions: Follow up with PMD or Clinic as indicated herrein Instructions: Diverticulosis, Diverticulosis (DC) Forms: [facility] (Surinamese), [facility] ED School/Work Excuse
[2018-11-25 02:39] VITALS: BP 151/99; PULSE 68; RESP 16; TEMP 97.8
--- NOTE | 2018-11-25 10:35 | CT ---
Date of service: 11/25/2018 PROCEDURE: CT Abdomen and Pelvis with contrast HISTORY: r/o pancreatitis COMPARISON: None. TECHNIQUE: Contrast dose: 95 mL Omnipaque 300 Radiation dose: Total exam DLP = 846.27 mGy-cm. This CT exam was performed using one or more of the following dose reduction techniques: Automated exposure control, adjustment of the mA and/or kV according to patient size, and/or use of iterative reconstruction technique. FINDINGS: LOWER THORAX: Unremarkable. LIVER: Too small to characterize 8 mm hepatic dome hypodensity (series 3, image 18). Punctate right hepatic lobe calcified granuloma. No gross lesion or ductal dilatation. GALLBLADDER AND BILE DUCTS: Unremarkable. PANCREAS: Unremarkable. No gross lesion or ductal dilatation. SPLEEN: Unremarkable. ADRENALS: Unremarkable. No mass. KIDNEYS AND URETERS: Unremarkable. No hydronephrosis. No solid mass. VASCULATURE: Unremarkable. No aortic aneurysm. No aortic atherosclerotic calcification or mural plaque present. BOWEL: Unremarkable. No obstruction. No gross mural thickening. APPENDIX: Normal appendix. PERITONEUM: Unremarkable. No free fluid. No free air. LYMPH NODES: Unremarkable. No enlarged lymph nodes. BLADDER: Unremarkable. REPRODUCTIVE: Unremarkable. BONES: No acute fracture. OTHER FINDINGS: None. IMPRESSION: No acute abdominal pelvic pathology.
--- NOTE | 2018-11-25 19:44 | CARD ---
APPROVED REPORT Date of service: 11/24/2018 EKG Measurement Heart [id number] <Conclusion> Normal sinus rhythm Normal ECG
--- NOTE | 2018-12-07 17:36 | ED PDOC ---
HPI: Abdomen Time Seen by Provider: 11/24/18 23:02 Chief Complaint (Nursing): GI Problem Chief Complaint (Provider): Abd Pain History Per: Patient History/Exam Limitations: no limitations Onset/Duration Of Symptoms: Days (THREE) Outside of [place] travel?: No Current Symptoms Are (Timing): Still Present Severity: Mild Pain Scale Rating Of: 3 Location Of Pain/Discomfort: Diffuse Past Medical History Reviewed: Historical Data, Nursing Documentation, Vital Signs Vital Signs: Last Vital Signs Temp 97.8 F 11/25/18 02:35 Pulse 68 11/25/18 02:35 Resp 16 11/25/18 02:35 BP 151/99 H 11/25/18 02:35 Pulse Ox 98 12/04/18 13:23 - Medical History PMH: Asthma Denies: HIV, Chronic Kidney Disease - Family History Family History: States: Unknown Family Hx - Immunization History Hx Tetanus Toxoid Vaccination: No Hx Influenza Vaccination: No Hx Pneumococcal Vaccination: No - Home Medications Home Medications: Ambulatory Orders Medication Instructions Recorded Albuterol HFA [Ventolin HFA 90 1 puff IH ASDIR 05/02/18 mcg/actuation (8 g)] Ibuprofen [Motrin Tab] 800 mg PO Q8 PRN 05/02/18 - Allergies Allergies/Adverse Reactions: Allergies Allergy/AdvReac Type Severity Reaction Status Date / Time No Known Allergies Allergy Verified 05/02/18 08:45 Review of Systems ROS Statement: Except As Marked, All Systems Reviewed And Found Negative Gastrointestinal: Positive for: Abdominal Pain Physical Exam - Reviewed Nursing Documentation Reviewed: Yes Vital Signs Reviewed: Yes - Physical Exam Appears: Positive for: Well, Non-toxic, No Acute Distress Head Exam: Positive for: ATRAUMATIC, NORMAL INSPECTION Skin: Positive for: Normal Color, Warm, Dry. Negative for: Diaphoresis, Pallor, Rash Eye Exam: Positive for: Normal appearance ENT: Positive for: Normal ENT Inspection Neck: Positive for: Normal, Painless ROM, Supple. Negative for: Decreased ROM Cardiovascular/Chest: Positive for: Regular Rate, Rhythm Respiratory: Positive for: Normal Breath Sounds Gastrointestinal/Abdominal: Positive for: Bowel Sounds (ACTIVE IN ALL FOUR QUADRANTS), Soft, Tenderness (LEFT LOWER AND UPPER QUADRANT PAIN). Negative for: Organomegaly, Mass, Distended, Guarding, Rebound - Laboratory Results Result Diagrams: 11/24/18 23:30 11/24/18 23:30 Lab Results: Troponin I < 0.0120 ng/mL (0.00-0.120) 11/24/18 23: Total Bilirubin 0.2 mg/dl (0.2-1.3) 11/24/18 23:30 AST 17 U/L (14-36) 11/24/18 23:30 ALT 34 U/L (9-52) 11/24/18 23: Alkaline Phosphatase 117 U/L (38-126) 11/24/18 23:30 Total Protein 7.2 G/DL (6.3-8.2) 11/24/18 23: Albumin 3.9 g/dL (3.5-5.0) 11/24/18 23: Globulin 3.3 gm/dL (2.2-3.9) 11/24/18 23: Albumin/Globulin Ratio 1.2 (1.0-2.1) 11/24/18 23: Lipase 90 U/L (23-300) 11/24/18 23: Urine Color Yellow (YELLOW) 11/24/18 23: Urine Clarity Cloudy (Clear) 11/24/18 23: Urine pH 6.0 (5.0-8.0) 11/24/18 23:30 Ur Specific [place] 1.014 (1.003-1.030) 11/24/18 23: Urine Protein Negative mg/dL (NEGATIVE) 11/24/18 23: Urine Glucose (UA) Neg mg/dL (NEGATIVE) 11/24/18 23: Urine Ketones Negative mg/dL (NEGATIVE) 11/24/18 23: Urine Blood Negative (NEGATIVE) 11/24/18 23: Urine Nitrate Negative (NEGATIVE) 11/24/18 23: Urine Bilirubin Negative (NEGATIVE) 11/24/18 23: Urine Urobilinogen 0.2-1.0 mg/dL (0.2-1.0) 11/24/18 23: Ur Leukocyte Esterase Mod [place]/uL (Negative) 11/24/18 23: Urine RBC (Auto) 3 /hpf (0-3) 11/24/18 23:30 Urine Microscopic WBC 5 /hpf (0-5) 11/24/18 23: Ur Squamous Epith Cells 17 /hpf (0-5) H 11/24/18 23:30 Urine Bacteria Rare (<OCC) 11/24/18 23:30 - ECG O2 Sat by Pulse Oximetry: 98 Disposition - Clinical Impression Clinical Impression: Diverticulosis - Patient ED Disposition Is Patient to be Admitted: No Doctor Will See Patient In The: Office Counseled Patient/Family Regarding: Diagnosis, Need For Followup, Rx Given - Disposition [facility]errals: [facility] [Outside] [facility]] [facility] [Outside] Disposition: Routine/Home Disposition Time: 03:00 Condition: STABLE Additional Instructions: Follow up with PMD or Clinic as indicated herrein Instructions: Diverticulosis, Diverticulosis (DC) Forms: [employer] (Eritrean), [facility] ED School/Work Excuse
== END 2018-11-25 02:38 | disposition home or self-care (01) ==
LOC: H.ER 22:22
DX: R10.9 Unspecified abdominal pain (principal); K57.90 Diverticulosis of intestine, part unspecified, without perforation or abscess without bleeding; J45.909 Unspecified asthma, uncomplicated
CPT/HCPCS: 74177; 80053; 81003; 81025; 83690; 84484; 85025; 93005; 99284; Q9966; Q9967